=== PATIENT | female | born 1950 | race Caucasian/White ===

== ENCOUNTER → 2017-01-26 | Outpatient (CLI) | payer MEDICARE, MEDICAID ==
[~2017-01-26] MED LIST: CARDIZEM CD DP120 MG PO; COZAAR100 MG PO; KEFLEX-DPS500 MG PO; LANTUS100 UNITS/ SQ; LIPITOR40 MG PO; MIRAPEX1 MG PO; PRILOSEC DPS20 MG PO; ZOLOFT DPS50 MG PO
== END | disposition home or self-care (01) ==
LOC: PTH.S 13:23
DX: Z01.812 Encounter for preprocedural laboratory examination (principal)

== ENCOUNTER 2017-02-01 05:44 | Observation (INO) | payer MEDICARE, MEDICAID ==
[~2017-02-01] VITALS: Ht 161.3 cm; Wt 133.2 kg
[2017-02-04] MEDS ORDERED: COZAAR100 MG PO (08:43)
[2017-02-04] MEDS ORDERED: MIRAPEX1 MG PO (08:43)
[2017-02-04] MEDS ORDERED: ZOLOFT DPS50 MG PO (08:43)
[2017-02-04] MEDS ORDERED: PRILOSEC DPS20 MG PO (08:43)
[2017-02-04] MEDS ORDERED: CARDIZEM CD DP120 MG PO (08:43)
[2017-02-04] MEDS ORDERED: LANTUS100 UNITS/ SQ (08:43)
[2017-02-04] MEDS ORDERED: KEFLEX-DPS500 MG PO (08:44)
[2017-02-04] MEDS ORDERED: LIPITOR40 MG PO (08:44)
--- NOTE | 2017-02-19 12:38 | OR ---
ADMIT: 02/01/2017 RM/LOC: 630 [facility] MR#: [id number] [facility] [address] [place], [place] [address] STEVE MCCLELLAND [address] [address] Operative/Delivery Room Report SEX: F AGE: 66 : 1950 SURGERY DATE: 02/01/2017 SURGEON: Harinder Adair MD PREOPERATIVE DIAGNOSIS: Large pannus with sores under the pannus and recurrent fungal infections. POSTOPERATIVE DIAGNOSIS: Large pannus with sores under the pannus and recurrent fungal infections. PROCEDURE PERFORMED: Panniculectomy. ANESTHESIA: General endotracheal. TRAFFIC RATE ANALYST: GARCIA Jett ESTIMATED BLOOD LOSS: Approximately 50 mL. SPECIMEN: Abdominal pannus to pathology, this weighed 30.9 pounds. DESCRIPTION OF PROCEDURE: After appropriate informed consent was obtained, the patient was brought to the operating room. I had marked out the area of resection in the preop area. Once in the OR, general endotracheal anesthesia was induced. Her abdominal pannus was prepped and draped in sterile fashion. I started by making an incision on the cephalad aspect of her abdominal pannus above the umbilicus. This was made from hipbone to hipbone. This was carried deep with cautery. The smaller vessels were cauterized, and larger vessels were clamped and divided and ligated with 0 Polysorb ties. Dissection was taken down directly onto the fascia. I disattached the umbilicus from the fascia. She had suture material there, it looks like from her previous umbilical hernia repair. The dissection was then continued inferiorly. I then made the lower incision across the lower aspect of the pannus above the pubic area from again hipbone to hipbone, this was carried deep with cautery. The larger superficial epigastric vessels were clamped and divided and ligated with 0 Polysorb ties. The remainder of the smaller vessels were controlled with cautery. The abdominal pannus was then reflected off the abdominal wall ADMIT: 02/01/2017 RM/LOC: 630 [facility] MR#: [id number] [facility] [address] [place], [place] [address] STEVE MCCLELLAND [address] [facility] [address] [place] [address] Operative/Delivery Room Report SEX: F AGE: 66 : 1950 using cautery. Once it was freed up, it was handed off and weighed, it weighed 30.9 pounds in total. The subcutaneous tissues were then copiously irrigated out with warm saline. Once I was satisfied with hemostasis, couple of 15-Danish round John drains were placed underneath the pannus. The drains were sewn in place and the skin was then temporarily closed with skin abilio. The dermal layer was then reapproximated with multiple interrupted 2-0 PDS sutures. The skin abilio were then placed across the entire length of the skin. Sterile dressings were applied. The drains were secured in place to bulb suction. GARCIA Jett, assisted in this entire procedure. His help was necessary for retraction during this difficult dissection. Harinder Adair MD/ domitila JOB #: [id number] CC: Harinder Adair, Attending Physician Ezequiel Machado MD, Family Physician Ezequiel Machado MD
--- NOTE | 2017-03-06 11:26 | HP ---
ADMIT: 02/01/2017 RM/LOC: 630 [facility] MR#: [id number] [facility] [address] [place], [place] [address] STEVE MCCLELLAND [address] [place] [address] [place] [address] History and Physical SEX: F AGE: 66 : 1950 DATE OF SERVICE: 02/01/2017 PREOPERATIVE DIAGNOSIS: Large abdominal pannus with sores under the skin. HISTORY OF PRESENT ILLNESS: This is a pleasant 66-year-old female patient of Dr. Machado and Dr. Rodriguez, who has a large abdominal pannus. This has been giving her troubles for a long time. She is now to the point, where she is ready to proceed with panniculectomy. PAST SURGICAL HISTORY: Previous surgeries done; an open gallbladder surgery. MEDICATIONS: All well, outlined on the chart. ALLERGIES: I BELIEVE ARE NONE. SOCIAL HISTORY: She denies tobacco or alcohol abuse. She lives independently. FAMILY HISTORY: Noncontributory. REVIEW OF SYSTEMS: A 10-point review of systems is negative with the exception of some wound issues underneath her pannus and debility trying to move and get up and be active with that. She is also diabetic. PHYSICAL EXAMINATION: GENERAL: She is alert. She is oriented. No acute distress. HEENT: Normal. LUNGS: Clear. HEART: Regular. ABDOMEN: Obese, soft, nondistended. She does have some sores underneath her abdominal pannus. She has a large right upper quadrant subcostal incision from an open gallbladder. EXTREMITIES: Warm and pink with minimal edema. ASSESSMENT: The patient desires panniculectomy for large abdominal pannus. PLAN: I have recommended proceeding with panniculectomy. I have gone through the risks and benefits of this procedure in depth with the patient. She does understand all this and agrees to proceed. Harinder Adair MD/ domitila JOB #: [id number] CC: Harinder Adair MD, Attending Physician Ezequiel Machado MD, Family Physician
== END 2017-02-03 11:21 | disposition home health service (06) ==
LOC: WOR 05:44 → 6PED 05:44
PROVIDERS: ADMIT Surgery
PROC: 0J080ZZ Alteration of Abdomen Subcutaneous Tissue and Fascia, Open Approach (ICD-10-PCS; principal; 2017-02-01)
DX: L98.491 Non-pressure chronic ulcer of skin of other sites limited to breakdown of skin (principal); E65 Localized adiposity; L08.89 Other specified local infections of the skin and subcutaneous tissue; G47.30 Sleep apnea, unspecified; I10 Essential (primary) hypertension; E78.00 Pure hypercholesterolemia, unspecified; K21.9 Gastro-esophageal reflux disease without esophagitis; E66.9 Obesity, unspecified; R26.2 Difficulty in walking, not elsewhere classified; M54.9 Dorsalgia, unspecified; E11.9 Type 2 diabetes mellitus without complications; Z98.890 Other specified postprocedural states; Z90.49 Acquired absence of other specified parts of digestive tract; Z88.6 Allergy status to analgesic agent; Z79.899 Other long term (current) drug therapy